=== PATIENT | female | born 1940 | race Caucasian/White ===

== ENCOUNTER → 2016-07-23 | Outpatient (CLI) | payer MEDICARE, OTHER ==
[2014-12-27 10:26] VITALS: BP 168/72
--- NOTE | 2016-07-23 11:02 | KCIC ---
PROCEDURE Renal ultrasound HISTORY Chronic kidney disease stage 3. COMPARISON None FINDINGS Right kidney measures 9.2 cm longitudinal without hydronephrosis or shadowing calculus. Left kidney measures 9.4 cm longitudinal without hydronephrosis or shadowing calculus. There is a 13 millimeter hypoechoic lesion arising from the lower pole of the left kidney compatible with a cyst. Right and left ureter jets are identified in the urinary bladder. Limited visualization of the aorta it due to overlying bowel gas but the aorta does appear to be irregular and ectatic. IMPRESSION 1. Bilateral small atrophic kidneys. 2. Small left lower pole renal cyst. Electronically signed by: Rustam Hoang MD (Jul 23, 2016 11:00:44)
== END | disposition home or self-care (01) ==
LOC: KCIC US 07:51
PROVIDERS: ATTEND Internal Medicine Nephrology
DX: N18.3 Chronic kidney disease, stage 3 (moderate) (principal); N26.1 Atrophy of kidney (terminal); N28.1 Cyst of kidney, acquired
CPT/HCPCS: 76770

== ENCOUNTER 2017-07-09 19:15 | Emergency (ER) | payer MEDICARE, OTHER ==
[2017-07-09] MEDS: ACETAMINOPHEN 500 MG TABLET PO ×2 (20:48)
[2017-07-09 20:49] LABS: INFLUENZA A PATIENT NEGATIVE (NEGATIVE); INFLUENZA B PATIENT NEGATIVE (NEGATIVE); OBC FLU VALID
[2017-07-09] MEDS: IV NORMAL SALINE 1000ML BAG 1,000 ML IV ×2 (20:49)
[2017-07-09 22:05] LABS: ADD MAN DIFF? NO
[2017-07-09 22:07] LABS: BASO # 0.1 x10^3/uL (0.0-0.2); BASO % 1 % (0-3); EOS # 0.5 x10^3/uL (0.0-0.7); EOS % 4 % (0-3); HEMATOCRIT 39.9 % (36.0-47.0); HEMOGLOBIN 13.7 g/dL (12.0-15.5); LYMPH # 2.7 x10^3/uL (1.0-4.8); LYMPH % 20 % (24-48); MEAN CORPUSCULAR HEMOGLOBIN 31 pg (25-35); MEAN CORPUSCULAR HGB CONC 34 g/dL (31-37); MEAN CORPUSCULAR VOLUME 91 fL (79-100); MONO # 1.5 x10^3/uL (0.0-1.1); MONO % 11 % (0-9); NEUT # 8.7 x10^3uL (1.8-7.7); NEUT % 65 % (31-73); PLATELET COUNT 253 x10^3/uL (140-400); RED BLOOD COUNT 4.37 x10^6/uL (3.50-5.40); RED CELL DISTRIBUTION WIDTH 13.5 % (11.5-14.5); WHITE BLOOD COUNT 13.5 x10^3/uL (4.0-11.0)
[2017-07-09 22:08] LABS: BILIRUBIN,URINE NEGATIVE (NEG); CLARITY,URINE CLEAR; COLOR,URINE YELLOW; GLUCOSE,URINE NEGATIVE (NEG); NITRITE,URINE NEGATIVE (NEG); PH,URINE 5.5; PROTEIN,URINE NEGATIVE (NEG-TRACE); UROBILINOGEN,URINE 0.2 mg/dL (0.2 mg/dL)
[2017-07-09 22:17] LABS: ANION GAP 8 (6-14); BACTERIA,URINE 0 /HPF (0-FEW); BLOOD UREA NITROGEN 20 mg/dL (7-20); BUN/CREATININE RATIO 20 (6-20); CALCIUM 9.3 mg/dL (8.5-10.1); CARBON DIOXIDE 28 mmol/L (21-32); CHLORIDE 103 mmol/L (98-107); GFR 54.2; GLUCOSE 119 mg/dL (70-99); RBC,URINE 0 /HPF (0-2); SODIUM 139 mmol/L (136-145); SQUAMOUS EPITHELIAL CELL,UR MANY /LPF
[2017-07-09 22:24] LABS: ALBUMIN 3.5 g/dL (3.4-5.0); ALBUMIN/GLOBULIN RATIO 0.8 (1.0-1.7); ALK PHOS 93 U/L (46-116); ALT (SGPT) 33 U/L (14-59); AST (SGOT) 21 U/L (15-37); TOTAL BILIRUBIN 0.4 mg/dL (0.2-1.0); TOTAL PROTEIN 7.9 g/dL (6.4-8.2)
[2017-07-09 22:24] LABS: TROPONINI < 0.017 ng/mL (0.000-0.055)
[2017-07-09 22:30] LABS: THYROID STIM HORMONE (TSH) 1.467 uIU/mL (0.358-3.74)
== END 2017-07-09 23:40 | disposition home or self-care (01) ==
LOC: ER 19:15
DX: J40 Bronchitis, not specified as acute or chronic (principal); D72.829 Elevated white blood cell count, unspecified; K21.9 Gastro-esophageal reflux disease without esophagitis; E78.00 Pure hypercholesterolemia, unspecified; Z88.5 Allergy status to narcotic agent; Z88.8 Allergy status to other drugs, medicaments and biological substances
CPT/HCPCS: 36415; 71046; 80053; 81001; 84443; 84484; 85025; 87804; 87804-59; 93005; 96360; 96361; 99285-25; J7030

== ENCOUNTER → 2018-07-25 | Outpatient (CLI) | payer MEDICARE ==
[2017-07-09 23:30] VITALS: BP 135/62
[~2018-07-25] MED LIST: ALBUTEROL SULFATE 2.5 MG/3 ML NEBU. NEB ONE
--- NOTE | 2018-07-28 14:50 | RESP ---
DATE OF SERVICE: 07/25/2018 The patient underwent full pulmonary function testing dated 07/25/2018. The FEV1 to FVC ratio was 71%, FEV1 was 77% of predicted at 1.64 liters, FVC was 2.28 liters at 81% of predicted. Total lung capacity was preserved. Diffusion capacity was likewise preserved. IMPRESSION: 1. Mild to moderate airflow limitation. 2. No significant bronchodilator response. 3. Preserved diffusion capacity. TAMIKO BERNAL MD DR: CASANDRA/rojelio JOB#: [id number] / [id number] MARISOL Connolly MD
== END | disposition home or self-care (01) ==
LOC: PF 08:36
PROVIDERS: ATTEND Internal Medicine Critical Care Medicine
DX: R06.00 Dyspnea, unspecified (principal); Z87.891 Personal history of nicotine dependence
CPT/HCPCS: 94060; 94640; 94729; J7613

== ENCOUNTER → 2018-07-25 | Outpatient (CLI) | payer MEDICARE ==
[2017-07-09 23:30] VITALS: BP 135/62
--- NOTE | 2018-07-26 08:04 | RAD ---
DATE: 07/25/2018 1:00 PM EXAM: MAMMO [place] SCREENING BILATERAL HISTORY: routine screening evaluation. COMPARISON: Prior mammographic imaging dating back to 11/12/2011 Bilateral CC and MLO views of the breasts were performed. Bilateral breast tomosynthesis was performed in CC and MLO projections. This study was interpreted with the benefit of Computerized Aided Detection (CAD ). Breast Density: The breast parenchyma is heterogeneously dense, which could reduce sensitivity of mammography. Breast parenchyma level C. FINDINGS: Benign calcifications are present. No suspicious masses, microcalcifications or architectural distortion is present to suggest malignancy in either breast. The visualized axillae are unremarkable. IMPRESSION: No mammographic evidence of malignancy. BI-RADS CATEGORY: 2 BENIGN FINDING(S) RECOMMENDED FOLLOW-UP: 12M 12 MONTH FOLLOW-UP Annual screening mammography is recommended, unless clinically indicated sooner based on symptoms or change in physical exam. PQRS compliance statement: Patient information was entered into a reminder system with a target due date 07/27/2019 for the next mammogram. Mammography is a sensitive method for finding small breast cancers, but it does not detect them all and is not a substitute for careful clinical examination. A negative mammogram does not negate a clinically suspicious finding and should not result in delay in biopsying a clinically suspicious abnormality. "Our facility is accredited by the [employer] Mammography Program." LESLIED
== END | disposition home or self-care (01) ==
LOC: MAMMO 10:01
PROVIDERS: ATTEND Family Medicine
DX: Z12.31 Encounter for screening mammogram for malignant neoplasm of breast (principal)
CPT/HCPCS: 77063; 77067

== ENCOUNTER → 2018-08-10 | Outpatient (CLI) | payer MEDICARE ==
[2017-07-09 23:30] VITALS: BP 135/62
--- NOTE | 2018-08-10 10:12 | KCIC ---
PQRS Compliance statement: One or more of the following individualized dose reduction techniques were utilized for this examination: 1. Automated exposure control. 2. Adjustment of the mA and/or kV according to patient size. 3. Use of iterative reconstruction technique. Indication:Bronchial infection. TECHNIQUE: CT chest without IV contrast with multiplanar reformats. COMPARISON:None FINDINGS: Heart is normal in size. No pericardial or pleural effusion. Coronary artery calcifications. No enlarged axillary lymph nodes seen. Shotty mediastinal lymph nodes are seen, nonspecific. Evaluation of hilar lymphadenopathy is limited due to lack of IV contrast. Central airways are patent. Mild diffuse emphysema. Otherwise, lungs are clear. Noncontrast appearance of the visualized liver, spleen, gallbladder, pancreas, adrenals and kidneys within normal limits. No suspicious bony lesion. IMPRESSION: Mild emphysema. Electronically signed by: Kenny Yoo DO (08/10/2018 10:09 AM) [facility]
== END | disposition home or self-care (01) ==
LOC: KCIC CT 07:48
PROVIDERS: ATTEND Internal Medicine Critical Care Medicine
DX: J43.9 Emphysema, unspecified (principal); I25.10 Atherosclerotic heart disease of native coronary artery without angina pectoris; Z87.09 Personal history of other diseases of the respiratory system
CPT/HCPCS: 71250

== ENCOUNTER → 2018-08-24 | Outpatient (CLI) | payer MEDICARE ==
[2017-07-09 23:30] VITALS: BP 135/62
--- NOTE | 2018-08-24 12:26 | KCIC ---
CT SOFT TISSUE NECK WO CONTRST Indication: Dyspnea. Shortness of breath. Exposure: One or more of the following individualized dose reduction techniques were utilized for this examination: 1. Automated exposure control 2. Adjustment of the mA and/or kV according to patient size 3. Use of iterative reconstruction technique. Technique: Scanning was performed without contrast. FINDINGS: Visualization of the brain is very limited by technique, no obvious mass effect. The visualized inferior sinuses are clear. Limited vascular examination without contrast. The parotid glands and submandibular glands appear symmetric. The airway is symmetric and patent. The lingual tonsils are mildly prominent. Adenoidal tissue and palatine tonsils are not significantly enlarged. No evidence of parapharyngeal fluid collection. Thyroid is symmetric. No significant lymph node enlargement. Partially seen lung apices demonstrate mild pleural and parenchymal scarring. No evidence of superficial soft tissue abnormality. Mild degenerative changes of the cervical spine. There is posterior spurring. There is also some calcification at the posterior canal at C5 and C6. Findings result in at least mild spinal stenosis. There is multilevel foraminal stenosis. Facet joint degenerative hypertrophy. There is patchy density within the visualized spine, particularly the cervical spine. Prevertebral soft tissues appear within normal limits. IMPRESSION: 1. Mild prominence of lingual tonsils, could be reactive or inflammatory. 2. Otherwise no significant acute finding. 3. Chronic appearing and degenerative changes at the cervical spine resulting in spinal and neural foraminal narrowing. 4. There is patchy density within the cervical vertebral bodies, uncertain significance. Osteoblastic metastatic disease could be considered if the patient has a primary malignancy. Nuclear medicine bone scan could be of benefit for further evaluation. Electronically signed by: Rustam Hoang MD (08/24/2018 12:23 PM) [facility]
== END | disposition home or self-care (01) ==
LOC: KCIC CT 10:55
PROVIDERS: ATTEND Internal Medicine Critical Care Medicine
DX: R06.00 Dyspnea, unspecified (principal); R06.02 Shortness of breath; M47.812 Spondylosis without myelopathy or radiculopathy, cervical region; M48.02 Spinal stenosis, cervical region
CPT/HCPCS: 70490

== ENCOUNTER → 2018-09-05 | Outpatient (CLI) | payer MEDICARE ==
[2017-07-09 23:30] VITALS: BP 135/62
--- NOTE | 2018-09-05 15:37 | RAD ---
Radionuclide bone scan, 09/05/2018: HISTORY: Abnormal CT study, C-spine lesion Whole-body imaging was performed following IV injection of 26 mCi of technetium 99m MDP. No previous bone scan is available at this time for comparison purposes. The following findings are delineated: 1. Increased activity at both wrists, shoulders, sternoclavicular joints and at both patellar levels is compatible with arthritis. 2. A small focus of increased activity is identified near the end of approximately the right third finger. This may be posttraumatic or arthritic. 3. There is markedly increased activity in the medial aspect of the left foot in approximately the metatarsal region which could be due to trauma or arthritis. 4. Minimally increased activity bilaterally at approximately L5 level is probably due to facet joint arthropathy 5.Radionuclide uptake in the cervical spine is unremarkable. There is no bone scan evidence of metastatic disease in the cervical spine. 6. Normal activity is identified in both kidneys and the bladder. IMPRESSION: 1. Increased activity medially at the left foot may be arthritic or posttraumatic in nature. Correlation with foot radiographs is suggested, if clinically indicated. 2. No bone scan findings to suggest multifocal osseous metastatic disease. Electronically signed by: Mick Pereyra MD (09/05/2018 3:34 PM) [facility]
== END | disposition home or self-care (01) ==
LOC: NM 08:22
PROVIDERS: ATTEND Internal Medicine Critical Care Medicine
DX: M85.9 Disorder of bone density and structure, unspecified (principal)
CPT/HCPCS: 78306; A9503

== ENCOUNTER 2018-12-14 06:37 | Observation (INO) | payer MEDICARE ==
[2018-12-14] VITALS (8 sets, daily range): BP systolic 109–149; BP diastolic 56–74
[~2018-12-14] VITALS: Ht 160 cm; Wt 62.6 kg
[~2018-12-14 06:37] MED LIST changes: -ALBUTEROL SULFATE 2.5 MG/3 ML NEBU. NEB ONE; +BUPIVACAINE-EPI 0.25%-1:200000 MPF 30 ML VIAL. ONE; +ESTROGENS, CONJ VAGINAL CREAM 30GM TUBE. ONE
[2018-12-14] MEDS ORDERED: fentaNYL PF VIAL 100 MCG/2 ML VIAL IV PRN ×2 (07:00)
[2018-12-14] MEDS ORDERED: ONDANSETRON PF 4 MG/2 ML VIAL. IV PRN ×2 (07:00→11:30)
[2018-12-14] MEDS ORDERED: PROCHLORPERAZINE 10 MG/2 ML VIAL. IV PRN (07:00)
[2018-12-14] MEDS ORDERED: IV RINGERS,LACTATED 1000ML 1,000 ML IV SCH (07:00)
[2018-12-14] MEDS ORDERED: ATOR40TA PO (07:14)
[2018-12-14] MEDS ORDERED: METO-239 PO (07:14)
[2018-12-14] MEDS ORDERED: CHOL200059 PO (07:14)
[2018-12-14] MEDS ORDERED: METO25TA4 PO (07:14)
[2018-12-14] MEDS ORDERED: CYAN-25 PO (07:14)
[2018-12-14] MEDS ORDERED: ALBU2.5V8 INH (07:14)
[2018-12-14] MEDS ORDERED: OMEP40CA5 PO (07:14)
[2018-12-14] MEDS ORDERED: SCOPOLAMINE 1.5MG PATCH. TD ONE (07:30)
[2018-12-14 07:32] LABS: BASO # 0.1 x10^3/uL (0.0-0.2); BASO % 1 % (0-3); EOS # 0.5 x10^3/uL (0.0-0.7); EOS % 6 % (0-3); HEMATOCRIT 45.4 % (36.0-47.0); HEMOGLOBIN 15.4 g/dL (12.0-15.5); LYMPH # 2.1 x10^3/uL (1.0-4.8); LYMPH % 27 % (24-48); MEAN CORPUSCULAR HEMOGLOBIN 31 pg (25-35); MEAN CORPUSCULAR HGB CONC 34 g/dL (31-37); MEAN CORPUSCULAR VOLUME 92 fL (79-100); MONO # 0.6 x10^3/uL (0.0-1.1); MONO % 9 % (0-9); NEUT # 4.4 x10^3/uL (1.8-7.7); NEUT % 58 % (31-73); PLATELET COUNT 246 x10^3/uL (140-400); RED BLOOD COUNT 4.94 x10^6/uL (3.50-5.40); WHITE BLOOD COUNT 7.6 x10^3/uL (4.0-11.0)
[2018-12-14] MEDS ORDERED: fentaNYL PF VIAL 100 MCG/2 ML VIAL ONE ×2 (08:30→11:35)
[2018-12-14] MEDS ORDERED: SEVOFLURANE 61 TO 120 MINUTES. IH ONE (08:30)
[2018-12-14] MEDS ORDERED: PROPOFOL 20 ML IV ONE (08:31)
[2018-12-14] MEDS ORDERED: DEXAMETHASONE SOD PHOS 4 MG/ML VIAL ONE (08:31)
[2018-12-14] MEDS ORDERED: ONDANSETRON PF 4 MG/2 ML VIAL. ONE (08:31)
[2018-12-14] MEDS ORDERED: LIDOCAINE 2% PF 5 ML VIAL. ONE (08:31)
[2018-12-14] MEDS ORDERED: PHENYLEPHRINE in 0.9% NACL PF 1 MG/10 ML SYRINGE. IV ONE (08:31)
[2018-12-14] MEDS ORDERED: ALBUTEROL SULFATE 2.5 MG/3 ML NEBU. INH PRN (09:15)
[2018-12-14] MEDS ORDERED: BUPIVACAINE-EPI 0.25%-1:200000 MPF 30 ML VIAL. INJ ONE ×2 (09:34→09:35)
[2018-12-14] MEDS ORDERED: ESTROGENS, CONJ VAGINAL CREAM 30GM TUBE. VG ONE (11:01)
--- NOTE | 2018-12-14 11:16 | PDOC ---
BRIEF OPERATIVE NOTE Date: Dec 14, 2018 Pre-Op Diagnosis cystocele and rectocele Post-Op Diagnosis same Procedure Performed anterior and posterior repairs Surgeon Dr. Katarina Pate Anesthesiologist Dr. Austin Anesthesia Type: General Blood Loss 15cc IV Fluid see anesthesia Urine Output 60cc clear via zapata Specimens Obtained vaginal mucosa Findings 2 cystocele and 2-3 degree rectocele Complications none Operative Note [id number] KATARINA PATE MD Dec 14, 2018 11:16
[2018-12-14] MEDS ORDERED: MORPHINE SULFATE 2 MG/ML VIAL. IV PRN ×2 (11:30→13:15)
[2018-12-14] MEDS ORDERED: ZOLPIDEM 5 MG TABLET. PO PRN (11:30)
[2018-12-14] MEDS ORDERED: LACTULOSE 20 GM/30 ML SOLUTION. PO PRN (11:30)
[2018-12-14] MEDS ORDERED: NALOXONE 0.4 MG/ML VIAL. IV PRN (11:30)
[2018-12-14] MEDS ORDERED: 0.9 % SODIUM CHLORIDE 10 ML DISP.SYRIN. IV PRN (11:30)
[2018-12-14] MEDS ORDERED: MAG HYDROX/ALUMINUM HYD/SIMETH 30 ML ORAL.SUSP PO PRN (11:30)
[2018-12-14] MEDS ORDERED: MAGNESIUM HYDROXIDE 2,400 MG/30 ML ORAL.SUSP. PO PRN (11:30)
[2018-12-14] MEDS ORDERED: SIMETHICONE 80 MG TAB.CHEW PO PRN (11:30)
[2018-12-14] MEDS ORDERED: oxyCODONE/APAP 5/325 1 TAB TABLET PO PRN (11:30)
[2018-12-14] MEDS ORDERED: CALCIUM CARBONATE 500 MG TAB.CHEW PO PRN (11:30)
[2018-12-14] MEDS ORDERED: diphenhydrAMINE 50 MG/ML VIAL IV PRN (11:30)
[2018-12-14] MEDS ORDERED: diphenhydrAMINE HCL 25 MG CAPSULE PO PRN (11:30)
--- NOTE | 2018-12-14 11:45 | OP ---
DATE OF SURGERY: 12/14/2018 PREOPERATIVE DIAGNOSES: Cystocele and rectocele. POSTOPERATIVE DIAGNOSES: Cystocele and rectocele. PROCEDURE: Anterior and posterior colporrhaphies. SURGEON: Shreya Pate M.D. CONSTRUCTION ESTIMATOR: OR personnel. ANESTHESIOLOGIST: Dr. Austin. ANESTHESIA: General. ESTIMATED BLOOD LOSS: 15 mL. URINE OUTPUT: 60 mL clear via Lester catheter. SPECIMEN REMOVED: Just anterior and posterior vaginal mucosa. FINDINGS: Second-degree cystocele, second to third degree rectocele. COMPLICATIONS: None. DESCRIPTION OF PROCEDURE: This patient was taken to the operating room where general anesthesia was placed. The patient was placed in a dorsal lithotomy position in [facility]. The patient's vagina was prepped and draped in the normal sterile fashion and a Lester had been inserted under sterile technique prior to my arrival. Upon my arrival, a timeout was performed where it was confirmed she received her antibiotics. Once this was done, a weighted speculum was placed in the patient's vagina. Long Allises were used to grasp the vaginal cuff. A 20 mL of a dilute solution of 1 part injectable 0.25% Marcaine with epinephrine was used in 4 parts of injectable saline in a 50:200 ratio, so 50 mL of local to 200 parts of injectable saline was used to make this dilute solution. A 20 mL was used in the anterior defect. A small scalpel was used to make a vertical incision. Allis clamps were placed on either side of this. Metzenbaum scissors were used to open up the anterior defect to about a cm below the urethra where the rugae were. Allis clamps were placed along the edges. Metzenbaums were used to sharply takedown the edges and then an open Ray-Denisse 4 x 4 was used to gently push up the bladder defect off the anterior vaginal mucosa. Once this was done and a series of I believe 6 interrupted 2-0 Vicryl stitches were placed and tagged and then went back tying them in order and reducing the defect along the way, the excess vaginal mucosa was trimmed on both sides and a full length 2-0 Vicryl was used to close this in an anterior to posterior running locked fashion and tied. At this point, the weighted speculum was removed and Megan's were placed at 4 and 7 o'clock at the introitus, a gaping introitus, and 60 mL of this dilute solution was used in the perineal body and posterior defect, about 4:1 ratio, 4 parts injectable saline to 1 part local. A scalpel was used to make a wedge-shaped kayce resection from just inside the introitus and on the perineal body and it was clipped and removed. Metzenbaum scissors were used to then open up the posterior defect as well placing Allises along the way to just a cm below the vaginal cuff where the anterior repair came down to. Again, Metzenbaum scissors were used to sharply takedown the edges releasing the defect from the posterior vaginal mucosa and then an open Ray-Denisse was used to push this up and reduce greatly. A series of 6 or 7 interrupted 2-0 Vicryl stitches was used to reduce this. I then did place one after tying them to just reinforce the middle as it was a large defect, but they were placed tagged and went back and tied as well, staying lots of excess. Posterior mucosa was trimmed as this was a larger defect. Once this was done, a full length 2-0 Vicryl was used to get the apex from the vagina, tie it down to the introitus, bring together the introitus in the hymenal opening, then going under, reapproximating the perineal body and the subcuing it like an episiotomy, taking it back inside the vagina to tie off. Both defects were reduced greatly. There was minimal bleeding. Premarin was placed not with any packing, just over the anterior and posterior vaginal mucosa, stitches. There was minimal bleeding and the procedure was ended. All sponge, lap and needle counts were correct x 2 by OR personnel. The patient is currently being awakened from anesthesia. SHREYA PATE MD DR: CHANTAL/rojelio JOB#: [id number] / [id number]
--- NOTE | 2018-12-14 16:29 | NUR ---
pt had period of anxiety with low with low o2 sat after re applying nasal canula with 4.0L O2 pt relaxed watching TV with family at bedside
[2018-12-14] MEDS: METOPROLOL TART IMMED RELEASE 25 MG TABLET. PO SCH (21:00)
[2018-12-14] MEDS ORDERED: ATORVASTATIN CALCIUM 40 MG TABLET. PO SCH (21:00)
[2018-12-14] MEDS ORDERED: ACETAMINOPHEN 325 MG TABLET. PO PRN (21:15)
[2018-12-15 01:30] VITALS: BP 120/63
[2018-12-15 06:18] VITALS: BP 121/58
[2018-12-15 08:50] LABS: CALCIUM 9.2 mg/dL (8.5-10.1); CREATININE 1.2 mg/dL (0.6-1.0); GFR 43.7; POTASSIUM 4.4 mmol/L (3.5-5.1)
--- NOTE | 2018-12-15 08:53 | PDOC ---
SURGICAL PROGRESS NOTE Subjective Doing well without complaints. Scant VB, voiding without catheter, ambulating well, tolerating regular diet without N/v Vital Signs Vital Signs Date Time Temp Pulse Resp B/P (MAP) Pulse Ox O2 Delivery O2 Flow Rate FiO2 12/15/18 07:48 20 94 Room Air 12/15/18 07:08 1.0 12/15/18 06:18 97.7 70 121/58 (79) 97.7 I&O Intake and Output 12/15/18 06:59 Intake Total 3510 ml Output Total 465 ml Balance 3045 ml Intake Oral 1060 ml IV Total 2450 ml Output Urine Total 450 ml Estimated Blood Loss 15 ml # Voids 3 PATIENT HAS A VALENCIA: No General: Alert, Oriented X3, Cooperative, No acute distress HEENT: Atraumatic Heart: Regular rate Abdomen: Soft, No tenderness, No masses Extremities: No clubbing, No cyanosis, No edema Skin: No rashes, No breakdown, No significant lesion Neuro: Normal speech Psych/Mental Status: Mental status NL, Mood NL Labs Laboratory Tests Test 12/14/18 07:11 12/14/18 11:22 White Blood Count 7.6 x10^3/uL (4.0-11.0) Red Blood Count 4.94 x10^6/uL (3.50-5.40) Hemoglobin 15.4 g/dL (12.0-15.5) Hematocrit 45.4 % (36.0-47.0) Mean Corpuscular Volume 92 fL (79-100) Mean Corpuscular Hemoglobin 31 pg (25-35) Mean Corpuscular Hemoglobin Concent 34 g/dL (31-37) Red Cell Distribution Width 14.0 % (11.5-14.5) Platelet Count 246 x10^3/uL (140-400) Neutrophils (%) (Auto) 58 % (31-73) Lymphocytes (%) (Auto) 27 % (24-48) Monocytes (%) (Auto) 9 % (0-9) Eosinophils (%) (Auto) 6 % (0-3) Basophils (%) (Auto) 1 % (0-3) Neutrophils # (Auto) 4.4 x10^3/uL (1.8-7.7) Lymphocytes # (Auto) 2.1 x10^3/uL (1.0-4.8) Monocytes # (Auto) 0.6 x10^3/uL (0.0-1.1) Eosinophils # (Auto) 0.5 x10^3/uL (0.0-0.7) Basophils # (Auto) 0.1 x10^3/uL (0.0-0.2) Glucose (Fingerstick) 153 mg/dL (70-99) Laboratory Tests Test 12/14/18 11:22 Glucose (Fingerstick) 153 mg/dL (70-99) I have reviewed the following labs, vitals, nursing Assessment/Plan POD#1 s/p anterior and posterior repairs routine po care d/c to home later today NPV x 6 weeks light/limited activity x 2 weeks keep scheduled one week follow up with me call or return sooner for any other questions or concerns not limited to but including pain unrelieved with pain meds, increased or unexplained vaginal bleeding or T>100.4 SHREYA PATE MD Dec 15, 2018 08:53
--- NOTE | 2018-12-15 08:54 | PDOC3 ---
Discharge Summary Visit Information Date of Admission: Dec 14, 2018 Date of Discharge: Dec 15, 2018 Final Diagnosis pelvic organ prolapse Brief Hospital Course Allergies Allergies Coded Allergies Type Severity Reaction Last Updated Verified latex Allergy Severe Rash 12/14/18 Yes orphenadrine Allergy Intermediate 12/15/18 Yes codeine Adverse Reaction Intermediate N/V 12/15/18 Yes hydrocodone Adverse Reaction Intermediate N/V 12/15/18 Yes Vital Signs Vital Signs Date Time Temp Pulse Resp B/P (MAP) Pulse Ox O2 Delivery O2 Flow Rate FiO2 12/15/18 07:48 20 94 Room Air 12/15/18 07:08 1.0 12/15/18 06:18 97.7 70 121/58 (79) 97.7 Lab Results Laboratory Tests Test 12/14/18 07:11 12/14/18 11:22 12/15/18 06:30 White Blood Count 7.6 x10^3/uL (4.0-11.0) Red Blood Count 4.94 x10^6/uL (3.50-5.40) Hemoglobin 15.4 g/dL (12.0-15.5) Hematocrit 45.4 % (36.0-47.0) Mean Corpuscular Volume 92 fL (79-100) Mean Corpuscular Hemoglobin 31 pg (25-35) Mean Corpuscular Hemoglobin Concent 34 g/dL (31-37) Red Cell Distribution Width 14.0 % (11.5-14.5) Platelet Count 246 x10^3/uL (140-400) Neutrophils (%) (Auto) 58 % (31-73) Lymphocytes (%) (Auto) 27 % (24-48) Monocytes (%) (Auto) 9 % (0-9) Eosinophils (%) (Auto) 6 % (0-3) Basophils (%) (Auto) 1 % (0-3) Neutrophils # (Auto) 4.4 x10^3/uL (1.8-7.7) Lymphocytes # (Auto) 2.1 x10^3/uL (1.0-4.8) Monocytes # (Auto) 0.6 x10^3/uL (0.0-1.1) Eosinophils # (Auto) 0.5 x10^3/uL (0.0-0.7) Basophils # (Auto) 0.1 x10^3/uL (0.0-0.2) Glucose (Fingerstick) 153 mg/dL (70-99) Sodium Level 139 mmol/L (136-145) Potassium Level 4.4 mmol/L (3.5-5.1) Chloride Level 102 mmol/L (98-107) Carbon Dioxide Level 30 mmol/L (21-32) Anion Gap 7 (6-14) Blood Urea Nitrogen 24 mg/dL (7-20) Creatinine 1.2 mg/dL (0.6-1.0) Estimated GFR (Cockcroft-Gault) 43.7 Glucose Level 139 mg/dL (70-99) Calcium Level 9.2 mg/dL (8.5-10.1) Laboratory Tests Test 12/14/18 11:22 12/15/18 06:30 Glucose (Fingerstick) 153 mg/dL (70-99) Sodium Level 139 mmol/L (136-145) Potassium Level 4.4 mmol/L (3.5-5.1) Chloride Level 102 mmol/L (98-107) Carbon Dioxide Level 30 mmol/L (21-32) Anion Gap 7 (6-14) Blood Urea Nitrogen 24 mg/dL (7-20) Creatinine 1.2 mg/dL (0.6-1.0) Estimated GFR (Cockcroft-Gault) 43.7 Glucose Level 139 mg/dL (70-99) Calcium Level 9.2 mg/dL (8.5-10.1) Brief Hospital Course Ms. Bernstein is a 78 old female who presented with symptomatic pelvic organ prolapse. She underwent anterior and posterior repairs without complications yesterday. She has had an unremarkable postoperative course and is AFVSS, minimal pain, voiding well, scant VB and wanting to go home today. Discharge Information Condition at Discharge: Stable Follow Up: Weeks Disposition/Orders: D/C to Home Scheduled Atorvastatin Calcium (Lipitor) 40 Mg Tablet, 40 MG PO HS for FOR CHOLESTEROL, #30 Ref 0 (Reported) Entered as Reported by: ALEJANDRO KLINE on 12/14/18713 Last Action: Continued on 12/14/18 09 by SHREYA PATE Cholecalciferol (Vitamin D3) (Vitamin D-3) 2,000 Unit Tablet, 5,000 UNIT PO DAILY for vitamin, (Reported) Entered as Reported by: ALEJANDRO KLINE on 12/14/18713 Last Action: HELD on 12/14/18903 by SHREYA PATE Cyanocobalamin (Vitamin B-12) (Vitamin B-12) 1,000 Mcg Tablet, 1,000 MCG PO DAILY for vitamin, (Reported) Entered as Reported by: ALEJANDRO KLINE on 12/14/18713 Last Taken: Unknown Dose on 12/13/182129 Last Action: HELD on 12/14/18903 by SHREYA PATE Metoprolol Succinate (Metoprolol Succinate ( Xl )) 25 Mg Tab.er.24h, 25 MG PO DAILY for FOR HYPERTENSION, #30 Ref 0 (Reported) Entered as Reported by: ALEJANDRO KLINE on 12/14/18713 Last Taken: Unknown Dose on 12/14/18544 Last Action: Continued on 12/14/18903 by SHREYA PATE Metoprolol Tartrate (Metoprolol Tartrate) 25 Mg Tablet, 12.5 MG PO BID for FOR HYPERTENSION, #60 Ref 0 (Reported) Entered as Reported by: ALEJANDRO KLINE on 12/14/18713 Last Action: Continued on 12/14/18903 by SHREYA PATE Omeprazole (Omeprazole) 40 Mg Capsule.dr, 40 MG PO DAILY for reflux, (Reported) Entered as Reported by: ALEJANDRO KLINE on 12/14/18713 Last Taken: Unknown Dose on 12/14/18544 Last Action: HELD on 12/14/18903 by SHREYA PATE Scheduled PRN Albuterol Sulfate (Proair Hfa Inhaler) 8.5 Gm Hfa.aer.ad, 1 PUFF INH PRN Q6HRS PRN for SHORTNESS OF BREATH, Ref 0 (Reported) Entered as Reported by: ALEJANDRO KLINE on 12/14/18713 Last Action: Continued on 12/14/18903 by SHREYA PATE Patient Instructions Patient Instructions POD#1 s/p anterior and posterior repairs routine po care d/c to home later today NPV x 6 weeks light/limited activity x 2 weeks keep scheduled one week follow up with me call or return sooner for any other questions or concerns not limited to but including pain unrelieved with pain meds, increased or unexplained vaginal bleeding or T>100.4 SHREYA PATE MD Dec 15, 2018 08:54
[2018-12-15 09:00] VITALS: BP 137/63
[2018-12-15] MEDS ORDERED: DOCUSATE SODIUM 100 MG CAPSULE. PO PRN (09:00)
[2018-12-15] MEDS ORDERED: METOPROLOL SUCC 24HR ER 25 MG TAB.ER.24H. PO SCH (09:00)
[2018-12-15 09:02] VITALS: BP 137/63
[2018-12-15] MEDS: METOPROLOL TART IMMED RELEASE 25 MG TABLET. PO SCH (09:02)
--- NOTE | 2018-12-15 09:52 | NUR ---
Nursing Note: Pt. denies questions or needs at this time, denies pain. Pt. denies need for WC, ambulated and escorted by RN to vehicle, Pt.'s sister is taking her home. Pt. discharged home. Grady Aburto RN
--- NOTE | 2018-12-18 17:06 | PATHOLOGY ---
[facility] Accession Number: [id number] . 01 Material submitted: . vagina - VAGINAL MUCOSA . 01 Clinical history: . Cystocele and rectocele . 02 Diagnosis: Segments of squamous mucosa and fibromuscular tissue, vaginal mucosa (cystocele and rectocele repair): - Focal mild squamous hyperplasia and parakeratosis, and focal mild chronic inflammation. (JPM/db; 12/18/2018) LBQ/12/18/2018 . 02 Electronically signed: . Pepe Renteria MD, Pathologist NPI- [id number] . 01 Gross description: . The specimen is received in formalin, labeled "Lennie Day, vaginal mucosa". Received are multiple segments of pale white mucosa measuring 5.3 x 3.1 x 1.1 cm in aggregate dimensions. The specimen is submitted representatively in cassette A1. (CAA; 12/15/2018) QAC/QAC . 02 Pathologist provided ICD-10: N76.1 . 02 CPT . 936851 Specimen Comment: A courtesy copy of this report has been sent to Specimen Comment: [phone], . Specimen Comment: Report sent to / DR GÓMEZ Performed at: 01 [facility] [address], [place], [place] [id number] MD Cameron Montez MD Phone: [phone] Performed at: 02 [facility] [address] [place], [place] [id number] MD Pepe Renteria MD Phone: [phone]
== END 2018-12-15 09:53 | disposition home or self-care (01) ==
LOC: SURG 06:37 → 3 NORTH 12:53
PROVIDERS: ADMIT Obstetrics & Gynecology; ATTEND Obstetrics & Gynecology
DX: N81.10 Cystocele, unspecified (principal); N81.6 Rectocele; J44.9 Chronic obstructive pulmonary disease, unspecified; M15.9 Polyosteoarthritis, unspecified; E78.2 Mixed hyperlipidemia; E83.52 Hypercalcemia; K21.9 Gastro-esophageal reflux disease without esophagitis; E11.22 Type 2 diabetes mellitus with diabetic chronic kidney disease; I12.9 Hypertensive chronic kidney disease with stage 1 through stage 4 chronic kidney disease, or unspecified chronic kidney disease; N18.2 Chronic kidney disease, stage 2 (mild); L43.9 Lichen planus, unspecified; E53.8 Deficiency of other specified B group vitamins; G47.09 Other insomnia; Z90.710 Acquired absence of both cervix and uterus; Z98.890 Other specified postprocedural states
CPT/HCPCS: 36415; 57260; 80048; 82962; 85014; 85025; 86850; 86900; 86901; 88305; A4314; A7015; G0378; G0379; J0690; J1100; J2001; J2370; J2405; J2704; J3010; J7120; Q0163

== ENCOUNTER 2019-04-05 09:53 | Emergency (ER) | payer MEDICARE, OTHER ==
[~2019-04-05] VITALS: Ht 162.6 cm; Wt 60.3 kg
[~2019-04-05 09:53] MED LIST changes: +ALBU2.5V8 INH; +ATOR40TA PO; -BUPIVACAINE-EPI 0.25%-1:200000 MPF 30 ML VIAL. ONE; +CHOL200059 PO; +CYAN-25 PO; -ESTROGENS, CONJ VAGINAL CREAM 30GM TUBE. ONE; +METO-239 PO; +METO25TA4 PO; +OMEP40CA45 PO
--- NOTE | 2019-04-05 10:31 | PHYS DOC ---
Past Medical History Past Medical History: COPD, GERD, High Cholesterol, Hypertension Past Surgical History: Hysterectomy, Other Additional Past Surgical Histo: cataract, back Smoking: Cigarettes (quit in 2013), Quit Greater Than 1 Year Alcohol Use: Occasionally Drug Use: None Adult General Chief Complaint Chief Complaint: WEAKNESS/GENERALIZED HPI HPI Patient is a 78 year old female, who presents to the emergency department with complaints of generalized weakness and intermittent left hand numbness for over a week. Patient states last week her primary care doctor prescribed her some steroids and a Z-Mike but she still just does not feel well. Patient denies any chest pain, fever, nausea, vomiting, diarrhea, abdominal pain, diaphoresis, palpitations, lower extremity swelling, headache, or dizziness. She states she has felt short of breath and very fatigued. She currently denies any pain. Review of Systems Review of Systems Constitutional: Denies fever or chills [] Eyes: Denies change in visual acuity, redness, or eye pain [] HENT: Denies nasal congestion or sore throat [] Respiratory: reports non-productive cough and SOA Cardiovascular: No additional information not addressed in HPI [] GI: Denies abdominal pain, nausea, vomiting, bloody stools or diarrhea [] : Denies dysuria or hematuria [] Musculoskeletal: Denies back pain or joint pain [] Integument: Denies rash or skin lesions [] Neurologic: Denies headache, focal weakness or sensory changes [] Endocrine: Denies polyuria or polydipsia [] Complete systems were reviewed and found to be within normal limits, except as documented in this note. Current Medications Current Medications Current Medications Medications (Trade) Dose Ordered Sig/Mathew Start Time Stop Time Status Last Admin Dose Admin Ceftriaxone Sodium (Rocephin) 1 gm 1X ONCE 04/05/19 12:00 04/05/19 12:01 DC 04/05/19 12:19 1 GM Sodium Chloride 1,000 ml @ 1,000 mls/hr 1X ONCE 04/05/19 12:00 04/05/19 12:59 DC 04/05/19 12:19 1,000 MLS/HR Allergies Allergies Allergies Coded Allergies Type Severity Reaction Last Updated Verified latex Allergy Severe Rash 12/14/18 Yes orphenadrine Allergy Intermediate 12/15/18 Yes codeine Adverse Reaction Intermediate N/V 12/15/18 Yes hydrocodone Adverse Reaction Intermediate N/V 12/15/18 Yes Physical Exam Physical Exam Constitutional: Well developed, well nourished, no acute distress, non-toxic appearance. [] HENT: Normocephalic, atraumatic, bilateral external ears normal, oropharynx moist, no oral exudates, nose normal. [] Eyes: PERRLA, EOMI, conjunctiva normal, no discharge. [] Neck: Normal range of motion, no stridor. [] Cardiovascular:Heart rate regular rhythm, no murmur [] Lungs & Thorax: Bilateral breath sounds clear to auscultation [] Abdomen: Bowel sounds normal, soft, no tenderness, no masses, no pulsatile masses. [] Skin: Warm, dry, no erythema, no rash. [] Back: No tenderness Extremities: No tenderness, no cyanosis, no clubbing, ROM intact, no edema. [] Neurologic: Alert and oriented X 3, no focal deficits noted. [] Psychologic: Affect normal, judgement normal, mood normal. [] Current Patient Data Vital Signs Vital Signs Date Time Temp Pulse Resp B/P (MAP) Pulse Ox O2 Delivery O2 Flow Rate FiO2 04/05/19 13:59 77 92 04/05/19 10:00 97.5 18 161/72 (101) Room Air 97.5 Lab Values Laboratory Tests Test 04/05/19 10:30 04/05/19 10:45 04/05/19 13:39 White Blood Count 11.6 x10^3/uL (4.0-11.0) H Red Blood Count 4.27 x10^6/uL (3.50-5.40) Hemoglobin 13.3 g/dL (12.0-15.5) Hematocrit 39.8 % (36.0-47.0) Mean Corpuscular Volume 93 fL (79-100) Mean Corpuscular Hemoglobin 31 pg (25-35) Mean Corpuscular Hemoglobin Concent 33 g/dL (31-37) Red Cell Distribution Width 13.5 % (11.5-14.5) Platelet Count 291 x10^3/uL (140-400) Neutrophils (%) (Auto) 68 % (31-73) Lymphocytes (%) (Auto) 19 % (24-48) L Monocytes (%) (Auto) 9 % (0-9) Eosinophils (%) (Auto) 3 % (0-3) Basophils (%) (Auto) 1 % (0-3) Neutrophils # (Auto) 8.0 x10^3/uL (1.8-7.7) H Lymphocytes # (Auto) 2.2 x10^3/uL (1.0-4.8) Monocytes # (Auto) 1.0 x10^3/uL (0.0-1.1) Eosinophils # (Auto) 0.3 x10^3/uL (0.0-0.7) Basophils # (Auto) 0.1 x10^3/uL (0.0-0.2) Prothrombin Time 12.9 SEC (11.7-14.0) Prothrombin Time INR 1.0 (0.8-1.1) Activated Partial Thromboplast Time 28 SEC (24-38) Sodium Level 140 mmol/L (136-145) Potassium Level 4.3 mmol/L (3.5-5.1) Chloride Level 103 mmol/L (98-107) Carbon Dioxide Level 29 mmol/L (21-32) Anion Gap 8 (6-14) Blood Urea Nitrogen 27 mg/dL (7-20) H Creatinine 1.1 mg/dL (0.6-1.0) H Estimated GFR (Cockcroft-Gault) 48.3 BUN/Creatinine Ratio 25 (6-20) H Glucose Level 215 mg/dL (70-99) H Lactic Acid Level 1.3 mmol/L (0.4-2.0) Calcium Level 9.5 mg/dL (8.5-10.1) Magnesium Level 2.0 mg/dL (1.8-2.4) Total Bilirubin 0.5 mg/dL (0.2-1.0) Aspartate Amino Transferase (AST) 16 U/L (15-37) Alanine Aminotransferase (ALT) 24 U/L (14-59) Alkaline Phosphatase 79 U/L (46-116) Creatine Kinase 50 U/L (26-192) Creatine Kinase MB (Mass) < 0.5 ng/mL (0.0-3.6) Creatine Kinase MB Relative Index % (0-4) Troponin I Quantitative < 0.017 ng/mL (0.000-0.055) < 0.017 ng/mL (0.000-0.055) UE-Sae-D-Type Natriuretic Peptide 142 pg/mL (0-449) Total Protein 7.6 g/dL (6.4-8.2) Albumin 3.3 g/dL (3.4-5.0) L Albumin/Globulin Ratio 0.8 (1.0-1.7) L Urine Collection Type Unknown Urine Color Yellow Urine Clarity Clear Urine pH 5.5 Urine Specific [place] 1.025 Urine Protein Negative mg/dL (NEG-TRACE) Urine Glucose (UA) 100 mg/dL (NEG) Urine Ketones (Stick) Negative mg/dL (NEG) Urine Blood Negative (NEG) Urine Nitrite Negative (NEG) Urine Bilirubin Negative (NEG) Urine Urobilinogen Dipstick 1.0 mg/dL (0.2 mg/dL) Urine Leukocyte Esterase Moderate (NEG) Urine RBC Occ /HPF (0-2) Urine WBC 11-20 /HPF (0-4) Urine Squamous Epithelial Cells Many /LPF Urine Bacteria Many /HPF (0-FEW) Urine Mucus Marked /LPF Laboratory Tests 04/05/19 10:30 Laboratory Tests 04/05/19 10:30 EKG EKG 1017- SR rate 81, no STEMI read by Dr. Ford[] Radiology/Procedures Radiology/Procedures PROCEDURE: CHEST AP ONLY CHEST AP ONLY 04/05/2019 10:18 AM INDICATION: Shortness of air COMPARISON: 07/09/2017 TECHNIQUE: Portable frontal view of the chest is provided. FINDINGS: The cardiomediastinal silhouette is similar in appearance. Lungs are clear. There are no significant pleural effusions. There is no pulmonary vascular congestion. No pneumothorax. IMPRESSION: There is no acute cardiopulmonary process.[] Course & Med Decision Making Course & Med Decision Making Pertinent Labs and Imaging studies reviewed. (See chart for details) CBC unremarkable, CMP BUN 27, Qa Automation Architect 1.1, glucose 215, cardiac enzymes unremarkable; UA concerning for 11-20 WBCs CXR unremarkable EKG no acute findings, sinus rhythm VSS 1250- Spoke with patient's primary care Dr. Marisol Vick. Per Dr. Vick patient was complaining of chest pain, left neck pain, and left hand tingling in her office. Advised Dr. Vick of normal EKG and labs. Will repeat patient troponin before discharge. Advised of UTI findings and plan to prescribe keflex. 1300- Clarified with patient about chest pain. Pt states that she had chest pain 3 days ago but denies any chest pain or palpitations today. Pt also denies left hand tingling at this time, she states it comes and goes. Pt reports feeling better after IVF. Advised pt that we will recheck troponin, if negative plan will be to send pt home with UTI dx and prescription for keflex. Pt to increase clear fluids and follow up with Dr. Vick next week. PT verbalized an understanding of home care, medications, follow-up, and return to ED instructions and was in agreement with the plan of care. [] Dragon Disclaimer Dragon Disclaimer This electronic medical record was generated, in whole or in part, using a voice recognition dictation system. Departure Departure Impression: Primary Impression: UTI (urinary tract infection) Disposition: HOME, SELF-CARE Condition: STABLE Referrals: MARISOL VICK MD (PCP) Patient Instructions: Urinary Tract Infection, [id number] Additional Instructions: Fill prescription(s) and use as directed. Avoid bladder irritants such as caffeine, carbonation, and spicy foods. Increase clear fluids. Follow up with your primary care doctor if symptoms persist, return to the ER if symptoms worsen. Scripts Cephalexin (KEFLEX) 500 Mg Capsule 1 CAP PO BID for 7 Days, #14 CAP 0 Refills Prov: ONUR FELICIANO HOST AND HOSTESS 04/05/19 Problem Qualifiers Primary Impression: UTI (urinary tract infection) Urinary tract infection type: site unspecified Hematuria presence: without hematuria Qualified Codes: N39.0 - Urinary tract infection, site not specified ONUR FELICIANO [employer] HOSTESS Apr 05, 2019 10:31
[2019-04-05 10:53] LABS: BASO # 0.1 x10^3/uL (0.0-0.2); BASO % 1 % (0-3); EOS # 0.3 x10^3/uL (0.0-0.7); EOS % 3 % (0-3); HEMATOCRIT 39.8 % (36.0-47.0); HEMOGLOBIN 13.3 g/dL (12.0-15.5); LYMPH # 2.2 x10^3/uL (1.0-4.8); LYMPH % 19 % (24-48); MEAN CORPUSCULAR HEMOGLOBIN 31 pg (25-35); MEAN CORPUSCULAR HGB CONC 33 g/dL (31-37); MEAN CORPUSCULAR VOLUME 93 fL (79-100); MONO % 9 % (0-9); NEUT % 68 % (31-73); PLATELET COUNT 291 x10^3/uL (140-400); RED BLOOD COUNT 4.27 x10^6/uL (3.50-5.40); RED CELL DISTRIBUTION WIDTH 13.5 % (11.5-14.5); WHITE BLOOD COUNT 11.6 x10^3/uL (4.0-11.0)
[2019-04-05 11:00] LABS: BILIRUBIN,URINE NEGATIVE (NEG); CLARITY,URINE CLEAR; COLOR,URINE YELLOW; NITRITE,URINE NEGATIVE (NEG); PH,URINE 5.5; PROTEIN,URINE NEGATIVE (NEG-TRACE)
--- NOTE | 2019-04-05 11:01 | RAD ---
CHEST AP ONLY 04/05/2019 10:18 AM INDICATION: Shortness of air COMPARISON: 07/09/2017 TECHNIQUE: Portable frontal view of the chest is provided. FINDINGS: The cardiomediastinal silhouette is similar in appearance. Lungs are clear. There are no significant pleural effusions. There is no pulmonary vascular congestion. No pneumothorax. IMPRESSION: There is no acute cardiopulmonary process. Electronically signed by: So Mejía MD (04/05/2019 10:58 AM) [facility]
[2019-04-05 11:03] LABS: PROTHROMBIN TIME PATIENT 12.9 SEC (11.7-14.0)
[2019-04-05 11:04] LABS: CALCIUM 9.5 mg/dL (8.5-10.1); CREATININE 1.1 mg/dL (0.6-1.0); GFR 48.3; POTASSIUM 4.3 mmol/L (3.5-5.1)
[2019-04-05 11:06] LABS: BACTERIA,URINE MANY /HPF (0-FEW); SQUAMOUS EPITHELIAL CELL,UR MANY /LPF
[2019-04-05 11:09] LABS: RBC,URINE OCC /HPF (0-2)
[2019-04-05 11:09] LABS: ALBUMIN 3.3 g/dL (3.4-5.0); ALBUMIN/GLOBULIN RATIO 0.8 (1.0-1.7); TOTAL BILIRUBIN 0.5 mg/dL (0.2-1.0); TOTAL PROTEIN 7.6 g/dL (6.4-8.2)
[2019-04-05 11:33] LABS: CREATINE KINASE 50 U/L (26-192)
--- NOTE | 2019-04-05 11:58 | EKG ---
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
[2019-04-05] MEDS ORDERED: cefTRIAXone IV Push 1 GM VIAL. IVP ONE (12:00)
[2019-04-05] MEDS ORDERED: IV NORMAL SALINE 1000ML BAG 1,000 ML IV ONE (12:00)
[2019-04-05] MEDS ORDERED: CEPH-264 PO (12:35)
[2019-04-05 13:59] VITALS: BP 167/71
== END 2019-04-05 14:25 | disposition home or self-care (01) ==
LOC: ER 09:53
DX: N39.0 Urinary tract infection, site not specified (principal); J44.9 Chronic obstructive pulmonary disease, unspecified; K21.9 Gastro-esophageal reflux disease without esophagitis; E78.00 Pure hypercholesterolemia, unspecified; I10 Essential (primary) hypertension; Z87.891 Personal history of nicotine dependence; Z91.040 Latex allergy status; Z88.5 Allergy status to narcotic agent; Z88.8 Allergy status to other drugs, medicaments and biological substances
CPT/HCPCS: 36415; 71045; 80053; 81001; 82553; 83605; 83735; 83880; 84484; 85025; 85610; 85730; 87086; 87186; 93005; 96374; 99285; J0696; J7030

== ENCOUNTER → 2021-01-12 | Outpatient (CLI) | payer MEDICARE, OTHER ==
[~2021-01-12] MED LIST changes: +CEPH-264 PO; -OMEP40CA45 PO; +OMEP40CA7 PO
--- NOTE | 2021-01-12 14:10 | RAD ---
EXAM: Bilateral digital screening mammogram with tomosynthesis. HISTORY: 80-year-old female presents for screening mammography. TECHNIQUE: Full-field digital craniocaudal and mediolateral oblique 2D and 3D tomosynthesis images of both breasts are obtained for evaluation. Computer aided detection was applied. COMPARISON: 07/25/2018 BREAST PARENCHYMAL DENSITY: Level C - Heterogeneously dense. FINDINGS: There is no new suspicious mass, microcalcification or region of architectural distortion. There are multiple stable areas of benign nodularity and asymmetry throughout both breasts. There are few benign calcifications. IMPRESSION: BI-RADS Category 2: Benign finding(s). RECOMMENDATION: Annual mammography is recommended. If your mammogram demonstrates that you have dense breast tissue, which could hide abnormalities, and if you have other risk factors for breast cancer that have been identified, you might benefit from s upplemental screening tests that may be suggested by your ordering physician. Dense breast tissue, i n and of itself, is a relatively common condition. This information is not provided to cause undue c oncern, but rather to raise your awareness and to promote discussion with your physician regarding th e presence of other risk factors, in addition to dense breast tissue. A report of your mammography re sults will be sent to you and your physician. You should contact your physician if you have any ques tions or concerns regarding this report. Mammography is a sensitive method for finding small breast cancers, but it does not detect them all a nd is not a substitute for careful clinical examination. A negative mammogram does not negate a clin ically suspicious finding and should not result in delay in biopsying a clinically suspicious abnorma lity. PQRS compliance statement - Patient information was entered into a reminder system with a target due date for the next mammogram. "Our facility is accredited by the [employer] Mammography Program." Electronically signed by: Teresa Britt MD (01/12/2021 2:08 PM) [id number]
== END ==
LOC: MAMMO 08:00
PROVIDERS: ATTEND Family Medicine
DX: Z12.31 Encounter for screening mammogram for malignant neoplasm of breast (principal); R92.1 Mammographic calcification found on diagnostic imaging of breast
CPT/HCPCS: 77063; 77067

== ENCOUNTER 2021-07-25 17:22 | Emergency (ER) | payer MEDICARE, OTHER ==
[~2021-07-25] VITALS: Ht 162.6 cm; Wt 65.0 kg
[2021-07-25] MEDS ORDERED: IPRATRPIUM/ALBUTEROL 0.5/2.5MG 3 ML NEBU. NEB ONE (18:15)
[2021-07-25] MEDS ORDERED: BENZONATATE 100 MG CAPSULE. PO ONE (18:15)
--- NOTE | 2021-07-25 18:17 | PHYS DOC ---
Past Medical History Past Medical History: COPD, GERD, High Cholesterol, Hypertension Additional Past Medical Histor: INSOMNIA Past Surgical History: Hysterectomy, Other Additional Past Surgical Histo: cataract, back, BLADDER AND RECTAL Smoking Status: Former Smoker Alcohol Use: None Drug Use: None General Adult EDM: Chief Complaint: SHORTNESS OF BREATH HPI: HPI: Patient is a 80 year old female who presents for evaluation of a cough. Patient previously recovered from C19. Despite recovery patient has continued to have a cough. Patient has been treated by PCP and an Urgent Care with antiboitics and steroids without improvement. Review of Systems: Review of Systems: Constitutional: Denies fever or chills. [] Eyes: Denies change in visual acuity. [] HENT: Denies nasal congestion or sore throat. [] Respiratory: positive cough Cardiovascular: Denies chest pain or edema. [] GI: Denies abdominal pain, nausea, vomiting, bloody stools or diarrhea. [] : Denies dysuria. [] Musculoskeletal: Denies back pain or joint pain. [] Integument: Denies rash. [] Neurologic: Denies headache, focal weakness or sensory changes. [] Endocrine: Denies polyuria or polydipsia. [] Lymphatic: Denies swollen glands. [] Psychiatric: Denies depression or anxiety. [] Heart Score: C/O Chest Pain: N/A Risk Factors: Risk Factors: DM, Current or recent (<one month) smoker, HTN, HLP, family history of CAD, obesity. Risk Scores: Score 0 - 3: 2.5% MACE over next 6 weeks - Discharge Home Score 4 - 6: 20.3% MACE over next 6 weeks - Admit for Clinical Observation Score 7 - 10: 72.7% MACE over next 6 weeks - Early Invasive Strategies Current Medications: Current Medications Medications (Trade) Dose Ordered Sig/Mathew Start Time Stop Time Status Last Admin Dose Admin Albuterol/ Ipratropium (Duoneb) 3 ml 1X ONCE 07/25/21 18:15 07/25/21 18:16 07/25/21 18:12 3 ML Benzonatate (Tessalon Perle) 100 mg 1X ONCE 07/25/21 18:15 07/25/21 18:16 Allergies: Allergies: Allergies Coded Allergies Type Severity Reaction Last Updated Verified latex Allergy Severe Rash 12/14/18 Yes orphenadrine Allergy Intermediate 12/15/18 Yes codeine Adverse Reaction Intermediate N/V 12/15/18 Yes hydrocodone Adverse Reaction Intermediate N/V 12/15/18 Yes Physical Exam: PE: Constitutional: Well developed, well nourished, no acute distress, non-toxic appearance. [] HENT: Normocephalic, atraumatic, bilateral external ears normal, oropharynx moist, no oral exudates, nose normal. [] Eyes: PERRLA, EOMI, conjunctiva normal, no discharge. [] Neck: Normal range of motion, no tenderness, supple, no stridor. [] Cardiovascular:Heart rate regular rhythm, no murmur [] Lungs & Thorax: Bilateral breath sounds clear to auscultation [] Abdomen: Bowel sounds normal, soft, no tenderness, no masses, no pulsatile masses. [] Skin: Warm, dry, no erythema, no rash. [] Back: No tenderness, no CVA tenderness. [] Extremities: No tenderness, no cyanosis, no clubbing, ROM intact, no edema. [] Neurologic: Alert and oriented X 3, normal motor function, normal sensory function, no focal deficits noted. [] Psychologic: Affect normal, judgement normal, mood normal. [] Current Patient Data: Vital Signs: Vital Signs Date Time Temp Pulse Resp B/P (MAP) Pulse Ox O2 Delivery O2 Flow Rate FiO2 07/25/21 17:38 98.9 107 20 163/72 (102) 98 Room Air 98.9 EKG: EKG: [] Performed at 1824 Rate [address] elevation No ST depression No acute IN Radiology/Procedures: Radiology/Procedures: [] Impression: Wet Read CXRAY no acute process. Labs without abnormalities. DDimer not elevated. DC home with pcp and or pulmonary referral. Rx tessalon Course & Med Decision Making: Course & Med Decision Making Pertinent Labs and Imaging studies reviewed. (See chart for details) [] Dragon Disclaimer: Dragon Disclaimer: This electronic medical record was generated, in whole or in part, using a voice recognition dictation system. Departure Departure Impression: Primary Impression: Chronic cough Disposition: HOME / SELF CARE / HOMELESS Condition: STABLE Referrals: MARISOL GÓMEZ MD (PCP) TAMIKO BERNAL MD Patient Instructions: Cough, Adult Scripts Benzonatate (BENZONATATE) 100 Mg Capsule 1 CAP PO TID, #30 CAP Prov: MO DIAMOND DO 07/25/21 MO DIAMOND DO Jul 25, 2021 18:17
[2021-07-25 18:20] LABS: BASO # 0.1 x10^3/uL (0.0-0.2); BASO % 2 % (0-3); EOS # 0.8 x10^3/uL (0.0-0.7); EOS % 9 % (0-3); HEMATOCRIT 35.5 % (36.0-47.0); LYMPH # 1.7 x10^3/uL (1.0-4.8); LYMPH % 20 % (24-48); MEAN CORPUSCULAR HEMOGLOBIN 31 pg (25-35); MEAN CORPUSCULAR HGB CONC 34 g/dL (31-37); MEAN CORPUSCULAR VOLUME 92 fL (79-100); MONO % 12 % (0-9); NEUT # 4.8 x10^3/uL (1.8-7.7); NEUT % 57 % (31-73); PLATELET COUNT 222 x10^3/uL (140-400); RED BLOOD COUNT 3.87 x10^6/uL (3.50-5.40); RED CELL DISTRIBUTION WIDTH 13.5 % (11.5-14.5); WHITE BLOOD COUNT 8.5 x10^3/uL (4.0-11.0)
[2021-07-25 18:31] LABS: CALCIUM 9.3 mg/dL (8.5-10.1); CREATININE 1.3 mg/dL (0.6-1.0); GFR 39.6
[2021-07-25 18:32] LABS: PROTHROMBIN TIME PATIENT 12.8 SEC (11.7-14.0)
[2021-07-25 18:37] LABS: ALBUMIN 3.3 g/dL (3.4-5.0); ALBUMIN/GLOBULIN RATIO 1.1 (1.0-1.7); TOTAL BILIRUBIN 0.2 mg/dL (0.2-1.0); TOTAL PROTEIN 6.3 g/dL (6.4-8.2)
[2021-07-25 18:39] LABS: D-DIMER 0.39 ug/mlFEU (0.00-0.50)
[2021-07-25] MEDS ORDERED: BENZ-8 PO (19:10)
--- NOTE | 2021-07-25 19:11 | RAD ---
Exam: Chest one view INDICATION: Short of air TECHNIQUE: Frontal view of the chest Comparisons: 02/03/2019 FINDINGS: The cardiomediastinal silhouette and pulmonary vessels are within normal limits. The lung and pleural spaces are clear. IMPRESSION: No acute cardiopulmonary process. Electronically signed by: Staci Elliott MD (07/25/2021 7:08 PM) VIDAL
[2021-07-25 20:24] VITALS: BP 183/76
--- NOTE | 2021-07-26 01:09 | EKG ---
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
--- NOTE | 2021-07-26 01:16 | EKG ---
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
== END 2021-07-25 20:31 | disposition home or self-care (01) ==
LOC: ER 17:22
DX: R05.3 Chronic cough (principal); J44.9 Chronic obstructive pulmonary disease, unspecified; K21.9 Gastro-esophageal reflux disease without esophagitis; E78.00 Pure hypercholesterolemia, unspecified; I10 Essential (primary) hypertension; Z91.040 Latex allergy status; Z88.5 Allergy status to narcotic agent; Z88.8 Allergy status to other drugs, medicaments and biological substances
CPT/HCPCS: 36415; 71045; 80053; 83880; 84145; 84484; 85025; 85379; 85610; 85730; 93005; 94640; 99285